=== PATIENT | female | born 1990 | race Caucasian/White ===

== ENCOUNTER 2022-01-21 22:26 | Inpatient (IN) ==
[~2022-01-21 22:26] MED LIST: *HR* Nalbuphine 10 MG/ML AMPUL IV PRN; Azithromycin 500 MG in 0.9 % Sodium Chloride 250 ML IVPB PRN; Famotidine 20 MG/2 ML VIAL IVP PRN; Metoclopramide 10 MG/2 ML VIAL IVP PRN; Naloxone 0.4 MG/ML INJ IVP PRN; Ondansetron 4 MG/2 ML VIAL IVP PRN; Penicillin G Potassium 5,000,000 UNIT in 0.9 % Sodium Chloride Mini Bag 100 ML IVPB ONE
[2022-01-21 23:23] LABS: Basophils % 0.5 %; Eosinophils % 0.3 %; Hematocrit 35.3 % (35.3-44.9); Hemoglobin 11.5 g/dL (11.5-15.4); Immature Granulocytes % 0.6 % (0-4); Lymphocytes # 2.5 K/mcL (0.6-4.6); Lymphocytes % 32.6 %; Mean Corpuscular HGB Conc 32.6 g/dL (31.6-35.5); Mean Corpuscular Hemoglobin 29.7 pg (28.0-33.3); Mean Corpuscular Volume 91.2 fL (83.0-100.0); Mean Platelet Volume 10.5 fL (9.4-12.4); Monocytes # 0.5 K/mcL (0.0-1.3); Monocytes % 6.2 %; Neutrophils # 4.7 K/mcL (1.6-8.9); Platelet Count 208 K/mcL (140-400); Red Blood Count 3.87 M/mcL (3.82-4.97); Red Cell Distribution Width 13.7 % (11.5-14.5); Segmented Neutrophils % 59.8 %; White Blood Count 7.8 K/mcL (4.3-11.1)
[2022-01-21 23:54] LABS: Influenza A PCR Negative (Negative); Influenza B PCR Negative (Negative); Resp. Syncytial Virus PCR Negative (Negative)
[2022-01-22 00:02] LABS: SARS-CoV-2 by PCR (In House) Negative (Negative)
[2022-01-22] MEDS ORDERED: Oxytocin 30 UNIT/503 ML BAG IVC ONE (05:50)
[2022-01-22] MEDS ORDERED: Methylergonovine 0.2 MG/ML AMPUL IM ONE (05:54)
[2022-01-22] MEDS ORDERED: Ibuprofen 600 MG TABLET PO ONE (07:27)
[2022-01-22] MEDS: Penicillin G Potassium 2,500,000 UNIT/105 ML MLS IVPB SCH (07:30)
[2022-01-22] MEDS: Ringers Solution, Lactated 1,000 ML IVC SCH (07:30)
[2022-01-22] MEDS ORDERED: Lanolin 7 G OINT...G. TP PRN (08:15)
[2022-01-22] MEDS ORDERED: Measles/Mumps/Rubella Vacc 0.5 ML VIAL SQ PRN (08:15)
[2022-01-22] MEDS ORDERED: Ondansetron ODT 4 MG TAB.RAPDIS SL PRN (08:15)
[2022-01-22] MEDS ORDERED: Rho Immune Globulin 1,500 UNIT SYRINGE IM PRN (08:15)
[2022-01-22] MEDS ORDERED: Oxytocin 30 UNIT/503 ML BAG IVC SCH (08:15)
[2022-01-22] MEDS ORDERED: Benzocaine/Menthol 56 GM AEROSOL SPRAY TP PRN (08:15)
[2022-01-22] MEDS: Prenatal Vit/FA 1 EACH TABLET PO SCH (10:31)
[2022-01-22] MEDS: Acetaminophen 325 MG TABLET PO SCH ×2 (13:09→21:13)
[2022-01-22] MEDS: Ibuprofen 600 MG TABLET PO SCH (21:13)
[2022-01-23] MEDS: Acetaminophen 325 MG TABLET PO SCH (04:58)
[2022-01-23] MEDS: Ibuprofen 600 MG TABLET PO SCH (04:58)
[2022-01-23 05:15] VITALS: O2SAT 98
[2022-01-23 07:15] VITALS: BP 102/67; PULSE 56; TEMP 97.7
[2022-01-23 08:04] LABS: Basophils % 0.3 %; Eosinophils % 0.4 %; Hematocrit 30.9 % (35.3-44.9); Immature Granulocytes % 0.2 % (0-4); Lymphocytes # 2.8 K/mcL (0.6-4.6); Mean Corpuscular HGB Conc 32.4 g/dL (31.6-35.5); Mean Corpuscular Hemoglobin 29.9 pg (28.0-33.3); Mean Corpuscular Volume 92.5 fL (83.0-100.0); Mean Platelet Volume 11.1 fL (9.4-12.4); Monocytes # 0.6 K/mcL (0.0-1.3); Neutrophils # 5.5 K/mcL (1.6-8.9); Platelet Count 191 K/mcL (140-400); Red Blood Count 3.34 M/mcL (3.82-4.97); Segmented Neutrophils % 61.1 %
[2022-01-23] MEDS: Prenatal Vit/FA 1 EACH TABLET PO SCH (09:10)
== END 2022-01-23 10:32 | disposition home or self-care (01) | DRG 807 ==
LOC: 1NENULAB → 1NENUOBS 01-22 08:22
PROVIDERS: ADMIT Advanced Practice Midwife; ATTEND Advanced Practice Midwife